=== PATIENT | male | born 1985 | race African-American/Black ===

== ENCOUNTER 2023-06-10 10:52 | Day surgery (SDC) | payer OTHER, SELFPAY ==
[2023-06-05 09:03] VITALS: BMI 23.0
[2023-06-10] VITALS (8 sets, daily range): BP systolic 94–136; BP diastolic 43–80; PULSE 51–62; RESP 16–18; TEMP 36.2–36.6; O2SAT 98–100
[2023-06-10] MEDS: Lactated Ringers 1,000 ML 100 ML IVCONT (11:35)
--- NOTE | 2023-06-10 13:05 | P.CONAN_ITS ---
Documented by User: Shelley Box NP 06/09/23 11:43 HPI - Anesthesia Eval Consult details Narrative: 37yo M for Left lateral/MedialEye Muscle Recession/Resection PCP cleared (referred to cardiology for nonspecific ST-T wave changes on EKG, but not prohibitive to low risk eye surgery. Pt asymptomatic) [facility] Past Medical History Medical History (Updated 06/05/23 @ 08:55 by Nina Hager RN) Eye injury Surgical History Surgical History (Updated 06/05/23 @ 08:55 by Nina Hager RN) Hx of left cataract extraction Social History Social History Patient Tobacco Use Status: Never used Tobacco Use of substances other than those prescribed or required for medical reasons: Yes Are you DNR?: No Advance Directives: No Advance Directives Information Provided: Yes Meds Allergies Allergy/AdvReac Type Severity Reaction Status Date / Time No Known Allergies Allergy Verified 06/09/23 11:43 Home Medications Medication Instructions Recorded Confirmed Last Taken Type No Known Home Meds 06/05/23 06/05/23 Unknown History Exam Exam Date and Time: June 09, 2023 1141 Height,Weight and Vital Signs: Height 5 ft 7 in Weight 66.678 kg Pertinent Lab Results Pertinent Lab Results: CBC and BMP 05/2023 from outside facility WNL Narrative Narrative: EKG 05/[address]-T wave changes Assessment and Plan Assessment Anesthesia Assessment: Chart Reviewed Documented by User: Claudia Koch DO 06/10/23 13:12 [facility] Past Medical History Medical History (Updated 06/05/23 @ 08:55 by Nina Hager RN) Eye injury Family History Family history of problems with anesthesia: No Surgical History Surgical History (Updated 06/05/23 @ 08:55 by Nina Hager RN) Hx of left cataract extraction History of Problems with Anesthesia: No Social History Social History Patient Tobacco Use Status: Never used Tobacco Use of substances other than those prescribed or required for medical reasons: Yes Are you DNR?: No Advance Directives: No Advance Directives Information Provided: Yes Meds Allergies Allergy/AdvReac Type Severity Reaction Status Date / Time No Known Allergies Allergy Verified 06/09/23 11:43 Home Medications Medication Instructions Recorded Confirmed Last Taken Type No Known Home Meds 06/05/23 06/05/23 Unknown History Exam Exam Date and Time: June 10, 2023 1308 Height,Weight and Vital Signs: Height 5 ft 7 in Weight 66.678 kg Vital Signs Temperature 97.9 F 06/10/23 11:27 Pulse Rate 51 06/10/23 11:27 Respiratory Rate 16 06/10/23 11:27 Blood Pressure 120/64 06/10/23 11:27 Pulse Oximetry 100 06/10/23 11:27 Oxygen Delivery Method Room Air 06/10/23 11:27 Temperature 97.9 F 06/10/23 11:27 Pulse Rate 51 06/10/23 11:27 Respiratory Rate 16 06/10/23 11:27 Blood Pressure 120/64 06/10/23 11:27 Pulse Oximetry 100 06/10/23 11:27 Oxygen Delivery Method Room Air 06/10/23 11:27 Airway Mallampati Class: I TM Dist: >3cm Neck ROM: Full Loose/Missing/Broken Teeth: No Heart: S1S2 Lungs: CTAB Assessment and Plan Assessment Anesthesia Assessment: Anesthesia Plan Discussed and Chart Reviewed Final Anesthetic Review Family History of Problems with Anesthesia: No History of Problems with Anesthesia: No NPO: Yes ASA Class: I Final Preanesthetic Review: No Changes in Pt Med Stat, Meds/Allgs Chart Reviewed, Consent Obtained/Reviewed and Anes Risks/Benef Reviewed Patient Risk: Low Procedure Risk: Low Anesthetic Plan Anesthetic Plan: GA and Agree w/ Assess. and Plan Disposition: Standard PACU
--- NOTE | 2023-06-10 14:08 | P.OPHTHAL_ITS ---
Ophthalmology Operative Note Date of Service: 06/10/23 Narrative: Diagnosis sensory exotropia left eye. Procedures 1. Resection of left lateral rectus 8 mm with a transposition superiorly half a tendon width 2. Recession of left medial rectus 5 mm with a transposition superiorly half a tendon width. Surgeon Dr. Otto anesthesia general complications none. The patient was brought to the operating room placed under general anesthesia. The left eye was prepped and draped in the usual sterile ophthalmic fashion. A lid speculum was placed in the eye and an incision was made at bare sclera in the inferonasal fornix. The medial rectus muscle was hooked and dissected free of surrounding scar tissue. It was secured at its insertion with a double-armed Vicryl suture and disinserted from the globe. It was reattached to a position position 5 mm posterior to the insertion with a half tendon width transposition superiorly. Conjunctiva was closed with interrupted Vicryl sutures. An incision was then made at bare sclera in the inferotemporal fornix. The lateral rectus muscle was hooked and dissected free of its overlying fascial attachments. It was secured at its insertion with a [place] muscle clamp and a 5 mm section was marked off with cautery. The resection point was secured with a double-armed Vicryl suture and the distal muscle resected. The resection point was then drawn forward to the original insertion and transposed superiorly half a tendon width. Conjunc tiva was closed with interrupted Vicryl sutures. The patient was then awoken from general anesthesia and discharged to postoperative recovery in good condition.
[2023-06-10] MEDS: oxyCODONE HCl Immed Release 5 MG TABLET 10 MG PO (14:44)
== END 2023-06-10 15:53 | disposition home or self-care (01) ==
PROVIDERS: PCP Internal Medicine; Visit Provider Ophthalmology
PROC: (CPT 67312; principal; 2023-06-10 13:00)
DX: H50.042 Monocular esotropia with other noncomitancies, left eye (principal); R94.31 Abnormal electrocardiogram [ECG] [EKG]; D64.9 Anemia, unspecified
CPT/HCPCS: 67312; 67320; J0131; J1100; J1885; J2405; J3010